=== PATIENT | male | born 1965 | race Caucasian/White ===

== ENCOUNTER 2022-11-17 14:21 | Outpatient (CLI) | payer OTHER, SELFPAY ==
[2022-11-17 17:58] LABS: PSA Screen* 3.07 ng/mL (0.10-4.00)
== END 2022-11-17 14:22 | disposition home or self-care (01) ==
LOC: LONREF 14:24
PROVIDERS: PCP Family Medicine; Visit Provider Family Medicine
DX: Z12.5 Encounter for screening for malignant neoplasm of prostate (principal)
CPT/HCPCS: 84153